=== PATIENT | female | born 1970 | race Caucasian/White ===

== ENCOUNTER 2021-06-25 18:15 | Emergency (ER) | payer BC ==
[~2021-06-25] VITALS: Ht 149.9 cm; Wt 73.5 kg
[2021-06-25 18:31] VITALS: BP 139/92
--- NOTE | 2021-06-25 19:23 | NUR ---
PATIENT AMBULATED TO BED 4
--- NOTE | 2021-06-25 19:30 | NUR ---
50 Y/O FEMALE BIB SELF FOR EPIGASTRIC PAIN. PATIENT PRESENTS TO ED WITH N/V W/O BLOOD AND OCCASIONAL BRIGHT RED BLOOD IN FECES. PT STATES SHE HAS BEEN ABLE TO EAT/DRINK VERY LITTLE IN THE PAST X4. SHE ALSO STATES THAT THE IBUPROFEN SHE HAS BEEN PRESCRIBED WAS TAKEN YESTERDAY AND MADE HER FACE SWELL; CLAIMS NO DIFFICULTY BREATHING OR SOB. CONFIRMS N/V; SKIN IS PINK/WARM/DRY; AAOX4, AMBULATORY W/ USE OF A CANE; LUNGS CLEAR BL; HR EVEN AND REGULAR; PT DENIES ANY FEVER, CP, SOB, OR COUGH AT THIS TIME; PATIENT STATES PAIN OF 8/10 AT THIS TIME; BOWEL PATTERN IS NORMAL W/ NO DIFFICULTY OR PAIN; VSS; PATIENT POSITIONED FOR COMFORT; HOB ELEVATED; BEDRAILS UP X2; BED DOWN. ER MD MADE AWARE OF PT STATUS. HX: HTN AND TBI (X5 YRS AGO) [facility] MEDS: PROPANOLOL, IBUPROFEN, GABAPENTIN, CYMBALTA
[2021-06-25] MEDS ORDERED: FAMOTIDINE 20 MG/2 ML VIAL IVP ONE (20:15)
[2021-06-25] MEDS ORDERED: ONDANSETRON 4 MG/2 ML VIAL IVP ONE (20:15)
--- NOTE | 2021-06-25 21:30 | NUR ---
BLOOD COLLECTED AND WALKED TO LAB
[2021-06-25] MEDS ORDERED: ONDANSETRON 4 MG/2 ML VIAL ONE (21:38)
[2021-06-25] MEDS ORDERED: FAMOTIDINE 20 MG/2 ML VIAL ONE (21:38)
[2021-06-25 21:57] LABS: BASOPHILS % (AUTO) 0.4 % (0.0-2.0); EOSINOPHILS # (AUTO) 0.1 K/uL (0-0.4); EOSINOPHILS % (AUTO) 1.2 % (0.0-4.0); HEMATOCRIT 40.4 % (36-48); HEMOGLOBIN 13.6 g/dL (12.0-16.0); LYMPHOCYTES # (AUTO) 3.1 K/uL (2.5-16.5); LYMPHOCYTES % (AUTO) 27.7 % (20.5-51.1); MEAN CORPUSCULAR HEMOGLOBIN 29 pg (27-31); MEAN CORPUSCULAR HGB CONC 34 g/dL (33-37); MEAN CORPUSCULAR VOLUME 87.4 fL (80-94); MONOCYTES # (AUTO) 0.6 K/uL (0.8-1.0); MONOCYTES % (AUTO) 5.1 % (1.7-9.3); NEUTROPHILS # (AUTO) 7.3 K/uL (1.8-7.7); NEUTROPHILS % (AUTO) 65.6 % (42.2-75.2); PLATELET COUNT (AUTO) 301 K/uL (140-450); RED BLOOD CELL COUNT(AUTO) 4.62 MIL/uL (4.20-5.40); RED CELL DISTRIBUTION WIDTH 13.3 % (11.6-13.7); WHITE BLOOD COUNT (AUTO) 11.1 K/uL (4.8-10.8)
[2021-06-25 22:47] LABS: ALBUMIN 3.9 g/dL (3.4-5.0); CREATININE 0.6 mg/dL (0.6-1.3); TOTAL BILIRUBIN 0.4 mg/dL (0.0-1.0)
[2021-06-25 22:59] LABS: APPEARANCE,URINE CLEAR (CLEAR); BILIRUBIN,URINE NEGATIVE (NEGATIVE); BLOOD, URINE 3+ (NEGATIVE); COLOR,URINE YELLOW (YELLOW); LEUKOCYTE ESTERASE ,URINE NEGATIVE (NEGATIVE); NITRITE, URINE NEGATIVE (NEGATIVE); PH,URINE 5.5 (5.0-9.0); UGLUCOSE NEGATIVE (NEGATIVE)
[2021-06-25 23:02] LABS: RBC,URINE TOO NUMEROUS TO COUN /HPF (0-5); WBC,URINE 0-5 /HPF (0-5)
[2021-06-25] MEDS ORDERED: ONDA-188 PO (23:14)
[2021-06-25] MEDS ORDERED: FAMO-90 PO (23:14)
[2021-06-25 23:38] VITALS: BP 132/66
--- NOTE | 2021-06-25 23:38 | NUR ---
d/c with [facility]. d/c education given. opportunity to ask questions given and asnwered. rx of zofran and pepcid given.
== END 2021-06-25 23:38 | disposition home or self-care (01) ==
LOC: MED 18:15
DX: R11.2 Nausea with vomiting, unspecified (principal); R10.13 Epigastric pain; I10 Essential (primary) hypertension; Z88.6 Allergy status to analgesic agent
CPT/HCPCS: 36415; 80053; 81001; 81025; 83690; 85025; 87086; 96374; 96375; 99284; J2405; J3490